=== PATIENT | female | born 1995 | race Caucasian/White ===

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

== ENCOUNTER 2017-12-05 13:23 | Emergency (ER) | payer SELFPAY ==
[~2017-12-05] VITALS: Ht 165.1 cm; Wt 50.0 kg
[2017-12-05 13:34] VITALS: Ht 165.1 cm; Wt 50.0 kg
[2017-12-05 14:33] LABS: BASOPHILS 0.1 % (0-2); EOSINOPHILS 0.6 % (0-7); HEMATOCRIT 42.3 % (36.0-48.0); HEMOGLOBIN 14.8 g/dL (12-16); IMMATURE GRANULOCYTES 0.2 % (0-5); LYMPHOCYTES 4.9 % (15-50); MCH 31.3 pg (26.0-34.0); MCV 89.4 fL (80.0-100.0); MEAN PLATELET VOLUME 8.8 fL (7.4-10.4); NEUTROPHILS 92.2 % (40-80); PLATELET COUNT 258 10x3/uL (130-400); RBC 4.73 10x6/uL (4.00-5.40); RDW 12.6 % (11.5-14.5); WBC 12.3 10x3/uL (4.8-10.8)
[2017-12-05 14:36] LABS: APPEARANCE HAZY (CLEAR); BILIRUBIN 2+ (NEGATIVE); COLOR DK YELLOW (YELLOW); GLUCOSE NEGATIVE (NEGATIVE); KETONE SMALL mg/dL (NEGATIVE); NITRITE NEGATIVE (NEGATIVE); PH 6.5 (5.0-6.0); PROTEIN NEGATIVE (NEGATIVE); SPECIFIC GRAVITY 1.015 (1.005-1.020); UROBILINOGEN NORMAL (NORMAL)
[2017-12-05 14:37] LABS: EPITHELIAL CELLS 0-5 /hpf (0-5); WHITE CELLS - URINE 0-5 /hpf (0-5)
[2017-12-05 14:38] LABS: BACTERIA MODERATE /hpf (NONE SEEN); MUCUS <1+ /lpf (NONE SEEN)
[2017-12-05 14:55] LABS: ALBUMIN 3.7 g/dL (3.4-5.0); ALKALINE PHOSPHATASE 60 U/L (46-116); ALT (SGPT) 19 U/L (10-68); AMYLASE - SERUM 42 U/L (25-115); BILIRUBIN - TOTAL 0.92 mg/dL (0.2-1.3); CALC OSMOLALITY 280 mosm/kg (275-300); CALCIUM 8.4 mg/dL (8.5-10.1); CARBON DIOXIDE 25.7 mmol/L (21.0-32.0); CHLORIDE - SERUM 104 mmol/L (98-107); CREATININE - SERUM 0.8 mg/dL (0.6-1.3); GLUCOSE 106 mg/dL (74-106); LIPASE 88 U/L (73-393); POTASSIUM - SERUM 3.7 mmol/L (3.5-5.1); PROTEIN - SERUM 6.9 g/dL (6.4-8.2); SODIUM 141 mmol/L (136-145); UREA NITROGEN 13 mg/dL (7-18); eGFR NON AFRICAN AMERICAN > 90 mL/min (90-120)
[2017-12-05 15:51] LABS: HCG URINE NEGATIVE (NEGATIVE)
[2017-12-05 15:57] LABS: UDS - AMPHET POSITIVE QUAL (NEGATIVE); UDS - BARB NEGATIVE QUAL (NEGATIVE); UDS - BENZO NEGATIVE QUAL (NEGATIVE); UDS - COCAINE NEGATIVE QUAL (NEGATIVE); UDS - OPIATE NEGATIVE QUAL (NEGATIVE); UDS - PCP NEGATIVE QUAL (NEGATIVE); UDS - THC POSITIVE QUAL (NEGATIVE)
[2017-12-05] MEDS ORDERED: HYDROCODON-ACE1 EAC7 PO (21:19)
[2017-12-05] MEDS ORDERED: DOXYCYCLINE HY100 M2 PO (21:19)
[2017-12-05 21:48] VITALS: BP 98/58
== END 2017-12-05 21:50 | disposition home or self-care (01) ==
LOC: D.ER 13:23
PROVIDERS: Family Medicine
DX: R10.9 Unspecified abdominal pain (principal); F15.10 Other stimulant abuse, uncomplicated; N73.9 Female pelvic inflammatory disease, unspecified; F17.200 Nicotine dependence, unspecified, uncomplicated

== ENCOUNTER 2020-09-14 08:27 | Emergency (ER) | payer SELFPAY ==
[~2020-09-14] VITALS: Ht 165.1 cm; Wt 54.5 kg
[~2020-09-14 08:27] MED LIST: DOXYCYCLINE HY100 M2 PO; HYDROCODON-ACE1 EAC7 PO
[2020-09-14 08:30] VITALS: BP 108/67; Ht 165.1 cm; Wt 54.5 kg
[2020-09-14 08:49] LABS: BILIRUBIN NEGATIVE (NEGATIVE); HCG URINE NEGATIVE (NEGATIVE); KETONE NEGATIVE (NEGATIVE); NITRITE NEGATIVE (NEGATIVE); UROBILINOGEN NORMAL mg/dL (< 2)
[2020-09-14] MEDS ORDERED: DOXYCYCLINE HY100 M2 PO (09:03)
[2020-09-15 16:08] LABS: CHLAMYDIA TRACHOMATIS, NAA Negative (Negative)
== END 2020-09-14 09:34 | disposition home or self-care (01) ==
LOC: D.ER 08:27
PROVIDERS: Emergency Medicine
DX: N73.9 Female pelvic inflammatory disease, unspecified (principal)